=== PATIENT | male | born 1930 | race Caucasian/White ===

== ENCOUNTER 2019-11-25 08:43 | Day surgery (SDC) | payer MEDICARE ==
[2019-11-25] VITALS (10 sets, daily range): BP systolic 119–132; BP diastolic 75–94
[~2019-11-25] VITALS: Ht 170.2 cm; Wt 107.5 kg
[2019-11-25] MEDS ORDERED: MIDAZolam 1mg/ml 10ml vial IV ONE (09:15)
[2019-11-25] MEDS ORDERED: fentaNYL/PF 50MCG/1 ML 2ML syringe IV ONE (09:15)
[2019-11-25] MEDS ORDERED: atropine 0.1mg/ml 10ml syringe IV ONE (09:15)
[2019-11-25] MEDS ORDERED: normal saline 1000ml 1,000 ML IV SCH (09:15)
[2019-11-25] MEDS ORDERED: OMEP20TA23 PO (09:26)
[2019-11-25] MEDS ORDERED: FLO0.4C PO (09:26)
[2019-11-25] MEDS ORDERED: ASPI81TA52 PO (09:33)
[2019-11-25] MEDS ORDERED: ALB0.5UD IH (09:33)
[2019-11-25] MEDS ORDERED: MAGN200T5 PO (09:33)
[2019-11-25] MEDS ORDERED: FLO0.1T PO (09:33)
[2019-11-25] MEDS ORDERED: POTA10TA19 PO (09:33)
[2019-11-25] MEDS ORDERED: GABA-530 PO (09:33)
[2019-11-25] MEDS ORDERED: FLEC50TA28 PO (09:33)
[2019-11-25] MEDS ORDERED: ALPR-624 PO (09:33)
[2019-11-25] MEDS ORDERED: COU2.5T PO (09:33)
[2019-11-25] MEDS ORDERED: MECL-183 PO (09:33)
[2019-11-25] MEDS ORDERED: ATOR40TA PO (09:33)
[2019-11-25] MEDS ORDERED: MULT-1141 PO (09:33)
[2019-11-25] MEDS ORDERED: OXYB5TAB16 PO (09:34)
[2019-11-25 09:55] LABS: BASOPHILS # (AUTO) 0.1 X10'3 (0-0.2); BASOPHILS % (AUTO) 1.2 % (0-1); EOSINOPHILS # (AUTO) 0.1 X10'3 (0-0.9); EOSINOPHILS % (AUTO) 1.8 % (0-6); HEMATOCRIT 42.9 % (42.0-52.0); LYMPHOCYTES # (AUTO) 0.8 X10'3 (1.1-4.8); LYMPHOCYTES % (AUTO) 16.8 % (21-51); MEAN CORPUSCULAR HEMOGLOBIN 29.7 PG (27.0-31.0); MEAN CORPUSCULAR HGB CONC 32.7 g/dL (33.0-36.5); MEAN CORPUSCULAR VOLUME 90.8 FL (78-98); MEAN PLATELET VOLUME 7.7 FL (7.4-10.4); MONOCYTES # (AUTO) 0.5 X10'3 (0-0.9); MONOCYTES % (AUTO) 11.1 % (2-12); NEUTROPHILS # (AUTO) 3.3 X10'3 (1.8-7.7); NEUTROPHILS % (AUTO) 69.1 % (42-75); PLATELET COUNT 159 X10'3 (140-440); RED BLOOD COUNT 4.72 X10'6 (4.70-6.10); RED CELL DISTRIBUTION WIDTH 15.4 % (11.5-14.5); WHITE BLOOD COUNT 4.8 X10'3 (4.5-11.0)
[2019-11-25 10:26] LABS: ALBUMIN 3.6 G/DL (3.4-5.0); ANION GAP 7 (8-16); BLOOD UREA NITROGEN 25 MG/DL (7-18); BUN/CREATININE RATIO 14.7 (5.4-32.0); CALCIUM 8.9 MG/DL (8.5-10.1); CHLORIDE 107 MMOL/L (99-107); GLUCOSE 89 MG/DL (70-104); MAGNESIUM 2.2 MG/DL (1.5-2.4); POTASSIUM 4.6 MMOL/L (3.5-5.1); SODIUM 142 MMOL/L (135-145); TOTAL CARBON DIOXIDE 28.2 MMOL/L (24-32); eGFR 38 ML/MIN
[2019-12-05] MEDS ORDERED: FLEC100T2 PO (18:51)
[2019-12-05] MEDS ORDERED: GABA600T13 PO (18:51)
== END 2019-11-25 12:24 | disposition home or self-care (01) ==
LOC: SSTAY O 08:43
PROVIDERS: ATTEND Internal Medicine Cardiovascular Disease
DX: I48.91 Unspecified atrial fibrillation (principal); G47.33 Obstructive sleep apnea (adult) (pediatric); E66.09 Other obesity due to excess calories; Z68.36 Body mass index [BMI] 36.0-36.9, adult
CPT/HCPCS: 36415; 80048; 83735; 85025; 85610; 92960; 93005; 94760; J0461; J2250; J3010; J7030